=== PATIENT | male | born 1940 | race Caucasian/White ===

== ENCOUNTER → 2017-10-08 | Outpatient (CLI) | payer OTHER ==
[~2017-10-08] MED LIST: ASCO500; ASCO500 PO; ASPI325; ASPI325 PO; CLON.5 PO; Cyclobenzaprine5 MG PO; ENOX40I SC; ERGO400 PO; FISH OIL + D31 EACH; FURO20 PO; Hair, Skin & N1 EACH PO; LAMO100 PO; LIDO700A20 TOP; LITH300C PO; LITH300ER PO; MULTI VITAMIN1 EACH PO; NAPR500 PO; NAPR500EC PO; NEBI10 PO; OMEP10ER; POTCHL20ER PO; PROM25 PO; RANI150 PO; ROSU10TA; ROSU10TA PO; ROSU5 PO; ROXICODONE5 MG PO; Slow Release I160 MG PO; TADA10TA; Valium5 MG PO; Vitamin D2000 UNIT PO; Zantac150 MG PO
== END | disposition home or self-care (01) ==
LOC: PLD 08:03
DX: L82.1 Other seborrheic keratosis (principal)
CPT/HCPCS: 88305; 88312

== ENCOUNTER 2017-10-14 06:12 | Day surgery (SDC) | payer OTHER ==
[~2017-10-14] VITALS: Ht 185.4 cm; Wt 95.7 kg
[~2017-10-14 06:12] MED LIST changes: -ASCO500 PO; -ASPI325 PO; -Cyclobenzaprine5 MG PO; -ENOX40I SC; -ERGO400 PO; -FISH OIL + D31 EACH; -FURO20 PO; -Hair, Skin & N1 EACH PO; -LIDO700A20 TOP; -NAPR500 PO; -POTCHL20ER PO; -PROM25 PO; -ROSU10TA PO; -ROXICODONE5 MG PO; -Slow Release I160 MG PO; -Valium5 MG PO
[2017-10-14] MEDS ORDERED: FISH OIL + D31 EACH (07:07)
[2018-03-18] MEDS ORDERED: NEBI10 PO ×2 (14:21→14:22)
[2018-03-18] MEDS ORDERED: LITH300C PO (14:22)
[2018-03-18] MEDS ORDERED: Slow Release I160 MG PO (14:22)
[2018-03-18] MEDS ORDERED: NAPR500 PO (14:23)
[2018-03-18] MEDS ORDERED: ASCO500 PO (14:24)
[2018-03-18] MEDS ORDERED: ASPI325 PO (14:24)
[2018-03-18] MEDS ORDERED: Hair, Skin & N1 EACH PO (14:24)
[2018-03-18] MEDS ORDERED: FURO20 PO (14:25)
[2018-03-18] MEDS ORDERED: ROSU10TA PO (14:25)
[2018-03-18] MEDS ORDERED: ERGO400 PO (14:25)
[2018-03-18] MEDS ORDERED: POTCHL20ER PO (14:26)
[2018-03-27] MEDS ORDERED: ROXICODONE5 MG PO (11:40)
[2018-03-28] MEDS ORDERED: Cyclobenzaprine5 MG PO (05:24)
[2018-03-28] MEDS ORDERED: Valium5 MG PO (05:24)
[2018-03-29] MEDS ORDERED: LIDO700A20 TOP (09:15)
== END 2017-10-14 12:17 | disposition home or self-care (01) ==
LOC: ORSCSDS 06:12
PROVIDERS: Orthopaedic Surgery
PROC: 0LQ14ZZ Repair Right Shoulder Tendon, Percutaneous Endoscopic Approach (ICD-10-PCS; principal; 2017-10-14 07:30)
PROC: 0RNJ4ZZ Release Right Shoulder Joint, Percutaneous Endoscopic Approach (ICD-10-PCS; principal; 2017-10-14 07:30)
PROC: 0LS14ZZ Reposition Right Shoulder Tendon, Percutaneous Endoscopic Approach (ICD-10-PCS; principal; 2017-10-14 07:30)
DX: M75.121 Complete rotator cuff tear or rupture of right shoulder, not specified as traumatic (principal); M75.41 Impingement syndrome of right shoulder; S46.111A Strain of muscle, fascia and tendon of long head of biceps, right arm, initial encounter; I10 Essential (primary) hypertension; I48.0 Paroxysmal atrial fibrillation; B19.20 Unspecified viral hepatitis C without hepatic coma; K21.9 Gastro-esophageal reflux disease without esophagitis; Z79.899 Other long term (current) drug therapy
CPT/HCPCS: C1713; J0171; J0690; J1100; J1885; J2250; J2270; J2405; J3010; J3370; J7050; J7120

== ENCOUNTER 2018-03-26 05:54 | Day surgery (SDC) | payer OTHER ==
[~2018-03-26] VITALS: Ht 182.9 cm; Wt 104.8 kg
[~2018-03-26 05:54] MED LIST changes: +ASCO500 PO; +ASPI325 PO; +ERGO400 PO; +FISH OIL + D31 EACH; +FURO20 PO; +Hair, Skin & N1 EACH PO; +NAPR500 PO; +POTCHL20ER PO; +ROSU10TA PO; +Slow Release I160 MG PO
[2018-03-27 04:24] LABS: BASOPHILS ABSOLUTE AUTO 0.04 K/mm3 (0.00-0.23); BASOPHILS PERCENT AUTO 1 % (0-2); EOSINOPHILS ABSOLUTE AUTO 0.26 K/mm3 (0.00-0.68); EOSINOPHILS PERCENT AUTO 3 % (0-6); Hematocrit 35.1 % (37.0-53.0); Hemoglobin 10.8 g/dL (13.5-17.5); IMMATURE GRAN ABSOLUTE AUTO 0.03 K/mm3 (0.00-0.10); IMMATURE GRAN PERCENT AUTO 0 % (0-1); LYMPHOCYTES ABSOLUTE AUTO 0.57 K/mm3 (0.84-5.20); LYMPHOCYTES PERCENT AUTO 7 % (21-46); MONOCYTES ABSOLUTE AUTO 0.74 K/mm3 (0.16-1.47); MONOCYTES PERCENT AUTO 9 % (4-13); Mean Corpuscular HGB 28.8 pg (26.0-34.0); Mean Corpuscular HGB Conc 30.8 g/dL (31.5-36.5); Mean Platelet Volume 9.4 fL (9.1-12.4); NEUTROPHILS ABSOLUTE AUTO 6.43 K/mm3 (1.96-9.15); NEUTROPHILS PERCENT AUTO 80 % (41-73); Platelet Count 169 K/mm3 (150-400); RDW Coefficient Variation 13.2 % (11.7-14.2); Red Blood Cell Count 3.75 M/mm3 (4.30-5.90); White Blood Cell Count 8.07 K/mm3 (4.00-11.30)
[2018-03-27 04:25] LABS: Mean Corpuscular Volume 94 fL (80-100)
[2018-03-27 04:38] LABS: Anion Gap 4 mmol/L (6-16); Blood Urea Nitrogen 28 mg/dL (8-24); Bun/Creatinine Ratio 25.7 (12.0-20.0); CO2, Blood 28 mmol/L (21-32); Calcium, Blood 8.1 mg/dL (8.5-10.1); Chloride, Blood 107 mmol/L (98-108); Creatinine, Blood 1.09 mg/dL (0.60-1.20); Glomerular Filtration Rate >60 (60-); Glucose, Blood 115 mg/dL (70-99); Magnesium, Blood 2.4 mg/dL (1.6-2.4); Potassium, Blood 4.8 mmol/L (3.5-5.5); Sodium, Blood 139 mmol/L (136-145)
[2018-03-27] MEDS ORDERED: ENOX40I SC (11:39)
[2018-03-27] MEDS ORDERED: ROXICODONE5 MG PO ×2 (11:40)
[2018-03-27] MEDS ORDERED: PROM25 PO (11:41)
[2018-03-28] MEDS ORDERED: Valium5 MG PO ×2 (05:24)
[2018-03-28] MEDS ORDERED: Cyclobenzaprine5 MG PO ×2 (05:24)
== END 2018-03-27 14:30 | disposition home or self-care (01) ==
LOC: ORSCMMR 05:54 → ORD 07:30 → ORSCMMR 07:30 → SURS 11:35 → ORSCMMR 03-27 14:30
PROVIDERS: Orthopaedic Surgery
PROC: 0SRC0J9 Replacement of Right Knee Joint with Synthetic Substitute, Cemented, Open Approach (ICD-10-PCS; principal; 2018-03-26 07:30)
DX: M17.11 Unilateral primary osteoarthritis, right knee (principal); S76.111A Strain of right quadriceps muscle, fascia and tendon, initial encounter; I10 Essential (primary) hypertension; E78.00 Pure hypercholesterolemia, unspecified; F31.9 Bipolar disorder, unspecified; Z79.82 Long term (current) use of aspirin; Z79.899 Other long term (current) drug therapy
CPT/HCPCS: 36415; 73560-RT; 80048; 83735; 85025; 86850; 86900; 86901; 88300; 88311; 97110; 97116; 97161; 97530; C1713; C1776; G8978; G8979; G8980; J0690; J1650; J1885; J2250; J2405; J3010; J3370; J7120

== ENCOUNTER 2018-03-28 03:53 | Observation (INO) | payer OTHER ==
[~2018-03-28] VITALS: Ht 182.9 cm; Wt 112.1 kg
[~2018-03-28 03:53] MED LIST changes: +ENOX40I SC; +PROM25 PO; +ROXICODONE5 MG PO
[2018-03-28] MEDS ORDERED: Cyclobenzaprine5 MG PO ×2 (05:24)
[2018-03-28] MEDS ORDERED: Valium5 MG PO ×2 (05:24)
[2018-03-29] MEDS ORDERED: LIDO700A20 TOP ×2 (09:15)
== END 2018-03-29 10:50 | disposition home or self-care (01) ==
LOC: ER 03:53 → ICUW 03:54 → MEDS 08:44 → ENPENDDIS 03-29 08:26 → MEDS 03-29 10:50
DX: R51 Headache (principal); M62.838 Other muscle spasm; F31.9 Bipolar disorder, unspecified; M19.90 Unspecified osteoarthritis, unspecified site; D63.8 Anemia in other chronic diseases classified elsewhere; I10 Essential (primary) hypertension; Z96.651 Presence of right artificial knee joint; Z79.82 Long term (current) use of aspirin; Z79.899 Other long term (current) drug therapy; Z88.1 Allergy status to other antibiotic agents; Z87.891 Personal history of nicotine dependence
CPT/HCPCS: 70450; 85651; 96374; 96375; 97110; 97116; 97161; 97530; 99285; G0378; G8978; G8979; J1100; J1200; J1650; J1885; J2765; J2930

== ENCOUNTER → 2018-05-22 | Outpatient (CLI) | payer OTHER ==
[~2018-05-22] MED LIST changes: +Cyclobenzaprine5 MG PO; +LIDO700A20 TOP; +Valium5 MG PO
== END | disposition home or self-care (01) ==
LOC: LAB SHORT 13:15 → LAB 13:15
DX: L02.419 Cutaneous abscess of limb, unspecified (principal)
CPT/HCPCS: 87070; 87077; 87186; 87205

== ENCOUNTER 2018-10-23 00:21 | Day surgery (SDC) | payer OTHER | END 2018-10-23 23:59 | disposition home or self-care (01) | LOC: WOUND 00:21 | PROC: 0KBS0ZZ Excision of Right Lower Leg Muscle, Open Approach (ICD-10-PCS; principal; 2018-10-23) | DX: L97.812 Non-pressure chronic ulcer of other part of right lower leg with fat layer exposed (principal) | CPT/HCPCS: 87070; 87075; 87077; 87186; 87205; G0463 ==

== ENCOUNTER 2018-10-30 07:55 | Day surgery (SDC) | payer OTHER | END 2018-10-30 22:57 | disposition home or self-care (01) | LOC: WOUND 07:55 | DX: L97.812 Non-pressure chronic ulcer of other part of right lower leg with fat layer exposed (principal) | CPT/HCPCS: G0463 ==

== ENCOUNTER 2018-11-06 08:00 | Day surgery (SDC) | payer OTHER | END 2018-11-06 23:20 | disposition home or self-care (01) | LOC: WOUND 08:00 | DX: L97.812 Non-pressure chronic ulcer of other part of right lower leg with fat layer exposed (principal); L03.115 Cellulitis of right lower limb | CPT/HCPCS: G0463 ==

== ENCOUNTER 2018-11-13 09:45 | Day surgery (SDC) | payer OTHER | END 2018-11-13 23:02 | disposition home or self-care (01) | LOC: WOUND 09:45 | DX: L97.812 Non-pressure chronic ulcer of other part of right lower leg with fat layer exposed (principal); R60.0 Localized edema; L03.115 Cellulitis of right lower limb; B96.89 Other specified bacterial agents as the cause of diseases classified elsewhere; Z96.651 Presence of right artificial knee joint ==

== ENCOUNTER 2018-11-20 00:29 | Day surgery (SDC) | payer OTHER | END 2018-11-20 22:46 | disposition home or self-care (01) | LOC: WOUND 00:29 | DX: L97.812 Non-pressure chronic ulcer of other part of right lower leg with fat layer exposed (principal); R60.0 Localized edema; L03.115 Cellulitis of right lower limb | CPT/HCPCS: 87070; 87075; 87205 ==

== ENCOUNTER 2018-11-27 00:18 | Day surgery (SDC) | payer OTHER | END 2018-11-27 22:44 | disposition home or self-care (01) | LOC: WOUND 00:18 | DX: L97.812 Non-pressure chronic ulcer of other part of right lower leg with fat layer exposed (principal); L03.115 Cellulitis of right lower limb; R60.0 Localized edema ==

== ENCOUNTER 2018-12-16 00:14 | Day surgery (SDC) | payer OTHER | END 2018-12-16 22:41 | disposition home or self-care (01) | LOC: WOUND 00:14 | DX: L97.812 Non-pressure chronic ulcer of other part of right lower leg with fat layer exposed (principal); R60.0 Localized edema; L03.115 Cellulitis of right lower limb | CPT/HCPCS: 88305; 88311; G0463 ==

== ENCOUNTER 2018-12-25 00:29 | Day surgery (SDC) | payer OTHER | END 2018-12-25 12:00 | disposition home or self-care (01) | LOC: WOUND 00:29 | DX: L97.812 Non-pressure chronic ulcer of other part of right lower leg with fat layer exposed (principal); D64.9 Anemia, unspecified; M19.90 Unspecified osteoarthritis, unspecified site; Z86.718 Personal history of other venous thrombosis and embolism ==

== ENCOUNTER 2019-01-01 00:06 | Day surgery (SDC) | payer OTHER | END 2019-01-01 23:01 | disposition home or self-care (01) | LOC: WOUND 00:06 | DX: L97.812 Non-pressure chronic ulcer of other part of right lower leg with fat layer exposed (principal); D64.9 Anemia, unspecified; M19.90 Unspecified osteoarthritis, unspecified site; Z86.718 Personal history of other venous thrombosis and embolism; Z96.651 Presence of right artificial knee joint | CPT/HCPCS: G0463 ==

== ENCOUNTER 2019-01-08 01:18 | Day surgery (SDC) | payer OTHER | END 2019-01-08 22:48 | disposition home or self-care (01) | LOC: WOUND 01:18 | DX: L97.812 Non-pressure chronic ulcer of other part of right lower leg with fat layer exposed (principal); I73.9 Peripheral vascular disease, unspecified; D64.9 Anemia, unspecified; M19.90 Unspecified osteoarthritis, unspecified site; Z86.718 Personal history of other venous thrombosis and embolism | CPT/HCPCS: G0463 ==

== ENCOUNTER 2019-01-15 07:50 | Day surgery (SDC) | payer OTHER ==
[2019-01-19] MEDS ORDERED: FISH OIL 1,0001 EAC1 PO (14:41)
[2019-01-19] MEDS ORDERED: Naproxen250 MG PO (14:42)
[2019-01-19] MEDS ORDERED: [UNRECOGNIZED DRUG - OTHER] (14:43)
== END 2019-01-15 23:50 | disposition home or self-care (01) ==
LOC: WOUND 07:50
DX: L97.812 Non-pressure chronic ulcer of other part of right lower leg with fat layer exposed (principal); I89.0 Lymphedema, not elsewhere classified; I73.9 Peripheral vascular disease, unspecified; M19.90 Unspecified osteoarthritis, unspecified site
CPT/HCPCS: G0463

== ENCOUNTER 2019-01-21 12:15 | Day surgery (SDC) | payer OTHER ==
[~2019-01-21 12:15] MED LIST changes: +FISH OIL 1,0001 EAC1 PO; +Naproxen250 MG PO; +[UNRECOGNIZED DRUG - OTHER]
== END 2019-01-21 22:43 | disposition home or self-care (01) ==
LOC: WOUND 12:15
DX: T81.89XA Other complications of procedures, not elsewhere classified, initial encounter (principal); L97.812 Non-pressure chronic ulcer of other part of right lower leg with fat layer exposed; I89.0 Lymphedema, not elsewhere classified; I73.9 Peripheral vascular disease, unspecified; M19.90 Unspecified osteoarthritis, unspecified site

== ENCOUNTER → 2019-03-31 | Outpatient (CLI) | payer OTHER | END | disposition home or self-care (01) | LOC: LAB 12:57 → LAB SHORT 12:57 | DX: L02.419 Cutaneous abscess of limb, unspecified (principal) | CPT/HCPCS: 87070; 87075; 87077; 87186; 87205 ==

== ENCOUNTER → 2019-08-27 | Outpatient (CLI) | payer OTHER | END | disposition home or self-care (01) | LOC: LAB SHORT 07:54 → PLD 07:54 | DX: D23.72 Other benign neoplasm of skin of left lower limb, including hip (principal) | CPT/HCPCS: 88305 ==

== ENCOUNTER 2020-02-23 10:56 | Day surgery (SDC) | payer OTHER ==
[~2020-02-23] VITALS: Ht 185.4 cm; Wt 83.1 kg
[~2020-02-23 10:56] MED LIST changes: +Ranitidine HCl150 M1 PO
--- NOTE | 2020-02-23 12:41 | NUR ---
02/23/20 1241 Maria Antonia Patel CHECKED IN ON PT. PT WAS ASLEEP IN BED. CALL LIGHT WITHIN REACH. NO QUESTIONS OR CONCERNS. TMG [id number]
--- NOTE | 2020-02-23 14:04 | NUR ---
02/23/20 1404 Tova Yi V PT RESTING IN RECLINER, VSS, DENIES PAIN AND NAUSEA. PT TOLERATING PO NURISHMENTS. D/C INSTRUCTIONS COMPLETED. PT D/C HOME PER PROTOCOL.
== END 2020-02-23 14:05 | disposition home or self-care (01) ==
LOC: ORSCSDS 10:56
PROVIDERS: Surgery
PROC: 0HB6XZZ Excision of Back Skin, External Approach (ICD-10-PCS; principal; 2020-02-23 12:15)
DX: L72.3 Sebaceous cyst (principal); F31.9 Bipolar disorder, unspecified; I48.91 Unspecified atrial fibrillation; Z79.899 Other long term (current) drug therapy
CPT/HCPCS: 88304; J0690; J7120

== ENCOUNTER → 2020-10-17 | Outpatient (CLI) | payer OTHER ==
[~2020-10-17] MED LIST changes: +FAMO20 PO
[2020-10-17 14:31] LABS: Creatinine, Urine Random 90.3 mg/dL (27.00-270.00); Microalb/Creat Ratio UR, Rand 19.158 mg/g (0.000-30.000); Microalbumin, Random Urine 17.3 mg/L (0.000-20.000)
== END | disposition home or self-care (01) ==
LOC: LAB 11:20
PROVIDERS: Internal Medicine
DX: N18.2 Chronic kidney disease, stage 2 (mild) (principal)
CPT/HCPCS: 82043; 82570

== ENCOUNTER 2021-03-10 08:03 | Emergency (ER) | payer OTHER ==
[~2021-03-10] VITALS: Ht 185.4 cm; Wt 83.9 kg
[~2021-03-10 08:03] MED LIST changes: -FAMO20 PO
[2021-03-10] MEDS ORDERED: FAMO20 PO (09:00)
[2021-03-10 09:14] LABS: BASOPHILS ABSOLUTE AUTO 0.06 K/mm3 (0.00-0.23); BASOPHILS PERCENT AUTO 1 % (0-2); EOSINOPHILS ABSOLUTE AUTO 0.16 K/mm3 (0.00-0.68); EOSINOPHILS PERCENT AUTO 2 % (0-6); Hematocrit 34.4 % (37.0-53.0); Hemoglobin 10.8 g/dL (13.5-17.5); IMMATURE GRAN ABSOLUTE AUTO 0.03 K/mm3 (0.00-0.10); IMMATURE GRAN PERCENT AUTO 0 % (0-1); LYMPHOCYTES ABSOLUTE AUTO 0.54 K/mm3 (0.84-5.20); LYMPHOCYTES PERCENT AUTO 7 % (21-46); MONOCYTES ABSOLUTE AUTO 0.63 K/mm3 (0.16-1.47); MONOCYTES PERCENT AUTO 8 % (4-13); Mean Corpuscular HGB Conc 31.4 g/dL (31.5-36.5); Mean Corpuscular Volume 92 fL (80-100); Mean Platelet Volume 10.6 fL (9.1-12.4); NEUTROPHILS ABSOLUTE AUTO 6.43 K/mm3 (1.96-9.15); NEUTROPHILS PERCENT AUTO 82 % (41-73); Platelet Count 196 K/mm3 (150-400); RDW Coefficient Variation 13.2 % (11.7-14.2); RDW Standard Deviation 43.9 fL (35.1-46.3); Red Blood Cell Count 3.73 M/mm3 (4.30-5.90); White Blood Cell Count 7.85 K/mm3 (4.00-11.30)
[2021-03-10 09:24] LABS: Alanine Aminotransfer (ALT/SGP 20 U/L (12-78); Albumin, Blood 3.3 g/dL (3.4-5.0); Albumin/Globulin Ratio 0.9 (0.8-1.8); Alk Phos 58 U/L (50-136); Anion Gap 3 mmol/L (6-16); Aspartate Aminotrans (AST/SGOT 12 U/L (12-37); Bilirubin, Total 0.3 mg/dL (0.1-1.0); Blood Urea Nitrogen 27 mg/dL (8-24); Bun/Creatinine Ratio 20.1 (12.0-20.0); CO2, Blood 24 mmol/L (21-32); Calcium, Blood 8.7 mg/dL (8.5-10.1); Chloride, Blood 112 mmol/L (98-108); Creatinine, Blood 1.34 mg/dL (0.60-1.20); Globulin, Blood 3.7 g/dL (2.2-4.0); Glomerular Filtration Rate 55 (60-); Glucose, Blood 119 mg/dL (70-99); Potassium, Blood 4.2 mmol/L (3.5-5.5); Sodium, Blood 139 mmol/L (136-145); Troponin I <0.015 ng/mL (0.000-0.040)
== END 2021-03-10 12:55 | disposition home or self-care (01) ==
LOC: ER 08:03
PROVIDERS: Emergency Medicine
DX: R07.9 Chest pain, unspecified (principal); Z88.1 Allergy status to other antibiotic agents; Z91.038 Other insect allergy status; Z79.899 Other long term (current) drug therapy; Z87.891 Personal history of nicotine dependence
CPT/HCPCS: 36415; 71046; 71260; 80053; 83690; 84484; 85025; 85379; 93005; 93010; 99285-25; Q9967

== ENCOUNTER → 2021-07-03 | Outpatient (CLI) | payer OTHER ==
[~2021-07-03] MED LIST changes: +FAMO20 PO
[2021-07-03 13:15] LABS: Source, Urine Clean Catch
[2021-07-03 14:09] LABS: Appearance, Urine Clear (Clear); Bilirubin, Urine Neg (Neg); Blood, Urine Neg (Neg); Color, Urine Yellow (P-Yellow); Glucose Qualitative, Urine Neg (Neg); Ketones, Urine Neg (Neg); Leukocyte Esterase, Urine Neg (Neg); Nitrite, Urine Neg (Neg); Protein, Urine Neg (Neg); Urobilinogen, Urine NORM (Normal)
[2021-07-03 14:28] LABS: Creatinine, Urine Random 31.4 mg/dL (27.00-270.00); Protein/Creat Ratio, Ur Random 0.3
== END | disposition home or self-care (01) ==
LOC: LAB SHORT 11:45
PROVIDERS: Internal Medicine
DX: N18.32 Chronic kidney disease, stage 3b (principal)
CPT/HCPCS: 81003; 82570; 84156

== ENCOUNTER → 2024-06-11 | Outpatient (CLI) | payer OTHER | LOC: LAB SHORT 13:18 → PLD 13:18 | DX: L72.0 Epidermal cyst (principal) | CPT/HCPCS: 88304 ==